=== PATIENT | female | born 1945 | race Caucasian/White ===

== ENCOUNTER 2021-02-06 16:15 | Emergency (ER) | payer MEDICARE, OTHER ==
[~2021-02-06 16:15] MED LIST: ALL DAY ALLERGY10 M2 PO; AMARYL4 MG PO; AUGMENTIN 875-1 EACH PO; ECOTRIN81 MG PO; ENOXAPARIN40 MG/0.4 SC; FEOSOL325 MG PO; GLUCOPHAGE1000 MG PO; HYDROCODON-ACE1 EAC2 PO; KEFLEX CAP 250250 MG PO; LASIX TAB 20 MG20 MG PO; LEVEMIR FL100 UNIT/1 SQ; NEURONTIN800 MG PO; PERCOCET 10-321 EACH PO; PROAIR HFA8.5 GM INH; TRICOR 145 MG145 MG PO; VANCOMYCIN HCL250 MG PO; VITAMIN D2 PO; VITAMIN D2000 UNI1 PO; ZOCOR20 MG PO
[2021-02-06 17:29] LABS: HEMOGLOBIN 11.1 gm/dl (12.3-15.3); RED BLOOD COUNT 3.83 M/UL (4.00-5.10); WHITE BLOOD COUNT 7.4 K/UL (4.5-11.0)
== END 2021-02-06 23:55 | disposition home or self-care (01) ==
LOC: ER1 16:15
PROVIDERS: Physician Assistant Medical
DX: R60.0 Localized edema (principal); E78.5 Hyperlipidemia, unspecified; E11.40 Type 2 diabetes mellitus with diabetic neuropathy, unspecified; F17.200 Nicotine dependence, unspecified, uncomplicated
CPT/HCPCS: 71045; 80053; 82550; 82553; 83874; 83880; 84484; 85025; 93005; 99284

== ENCOUNTER 2021-08-01 15:09 | Emergency (ER) | payer MEDICARE, OTHER, MEDICAID ==
[2021-08-01 16:12] LABS: HEMOGLOBIN 8.9 gm/dl (12.3-15.3); RED BLOOD COUNT 3.11 M/UL (4.00-5.10); WHITE BLOOD COUNT 4.8 K/UL (4.5-11.0)
[2021-08-01] MEDS ORDERED: LASIX20 MG PO (17:01)
[2021-08-01] MEDS ORDERED: CLINDAMYCIN HC150 MG PO (17:01)
== END 2021-08-01 19:38 | disposition home or self-care (01) ==
LOC: ER1 15:09
PROVIDERS: Emergency Medicine
DX: R60.0 Localized edema (principal); E11.9 Type 2 diabetes mellitus without complications; F17.200 Nicotine dependence, unspecified, uncomplicated
CPT/HCPCS: 71045; 80053; 83880; 84484; 85025; 86140; 93005; 99284

== ENCOUNTER 2021-08-31 21:50 | Inpatient (IN) | payer MEDICARE, OTHER ==
[~2021-08-31] VITALS: Ht 172.7 cm; Wt 61.2 kg
[~2021-08-31 21:50] MED LIST changes: +CLINDAMYCIN HC150 MG PO; +FENOFIBRATE145 MG PO; +LASIX20 MG PO; -TRICOR 145 MG145 MG PO
[2021-08-31 22:33] LABS: HEMOGLOBIN 9.7 gm/dl (12.3-15.3); RED BLOOD COUNT 3.41 M/UL (4.00-5.10); WHITE BLOOD COUNT 14.1 K/UL (4.5-11.0)
[2021-09-01 06:26] LABS: HEMOGLOBIN 8.6 gm/dl (12.3-15.3); RED BLOOD COUNT 3.07 M/UL (4.00-5.10)
[2021-09-01] MEDS ORDERED: LORATADINE10 MG PO (12:50)
[2021-09-01] MEDS ORDERED: JARDIANCE25 MG PO (12:52)
[2021-09-02 05:39] LABS: HEMOGLOBIN 8.5 gm/dl (12.3-15.3); RED BLOOD COUNT 2.98 M/UL (4.00-5.10); WHITE BLOOD COUNT 9.6 K/UL (4.5-11.0)
[2021-09-02 21:26] LABS: HEMOGLOBIN 8.3 gm/dl (12.3-15.3); RED BLOOD COUNT 2.91 M/UL (4.00-5.10); WHITE BLOOD COUNT 10.5 K/UL (4.5-11.0)
[2021-09-03 04:45] LABS: HEMOGLOBIN 8.5 gm/dl (12.3-15.3); RED BLOOD COUNT 2.98 M/UL (4.00-5.10); WHITE BLOOD COUNT 10.9 K/UL (4.5-11.0)
[2021-09-04 06:22] LABS: HEMOGLOBIN 7.9 gm/dl (12.3-15.3); RED BLOOD COUNT 2.84 M/UL (4.00-5.10); WHITE BLOOD COUNT 9.5 K/UL (4.5-11.0)
[2021-09-05 02:04] LABS: RED BLOOD COUNT 2.83 M/UL (4.00-5.10)
[2021-09-06 02:22] LABS: HEMOGLOBIN 7.2 gm/dl (12.3-15.3); WHITE BLOOD COUNT 7.5 K/UL (4.5-11.0)
[2021-09-06 02:24] LABS: RED BLOOD COUNT 2.53 M/UL (4.00-5.10)
[2021-09-07 01:49] LABS: RED BLOOD COUNT 2.33 M/UL (4.00-5.10)
[2021-09-07 01:58] LABS: WHITE BLOOD COUNT 5.6 K/UL (4.5-11.0)
[2021-09-07 01:59] LABS: HEMOGLOBIN 6.6 gm/dl (12.3-15.3)
[2021-09-07 02:55] LABS: HEMOGLOBIN 6.9 gm/dl (12.3-15.3)
[2021-09-07 19:24] LABS: HEMOGLOBIN 8.2 gm/dl (12.3-15.3)
[2021-09-07 22:47] LABS: BUN/CREATININE RATIO 25 (0-10)
[2021-09-08 03:04] LABS: HEMOGLOBIN 7.8 gm/dl (12.3-15.3); WHITE BLOOD COUNT 4.9 K/UL (4.5-11.0)
[2021-09-08 03:05] LABS: RED BLOOD COUNT 2.87 M/UL (4.00-5.10)
[2021-09-08 03:42] LABS: BUN/CREATININE RATIO 22 (0-10)
[2021-09-09 03:08] LABS: HEMOGLOBIN 8.1 gm/dl (12.3-15.3); RED BLOOD COUNT 2.97 M/UL (4.00-5.10); WHITE BLOOD COUNT 5.3 K/UL (4.5-11.0)
[2021-09-09 04:15] LABS: BUN/CREATININE RATIO 22 (0-10)
[2021-09-10 16:45] LABS: HEMOGLOBIN 8.5 gm/dl (12.3-15.3)
[2021-09-12 02:57] LABS: HEMOGLOBIN 8.9 gm/dl (12.3-15.3); RED BLOOD COUNT 3.25 M/UL (4.00-5.10); WHITE BLOOD COUNT 6.9 K/UL (4.5-11.0)
[2021-09-14 06:27] LABS: HEMOGLOBIN 8.7 gm/dl (12.3-15.3); RED BLOOD COUNT 3.12 M/UL (4.00-5.10); WHITE BLOOD COUNT 7.6 K/UL (4.5-11.0)
[2021-09-14 06:47] LABS: BUN/CREATININE RATIO 19 (0-10)
[2021-09-15] MEDS ORDERED: GABAPENTIN300 MG PO (08:32)
[2021-09-15] MEDS ORDERED: ASPIRIN EC81 MG PO (08:37)
[2021-09-15] MEDS ORDERED: PROVENTIL HFA6.7 GM INH (08:37)
[2021-09-15] MEDS ORDERED: LOPRESSOR 25 MG25 MG PO (08:37)
[2021-09-15] MEDS ORDERED: MEGACE 400400 MG/10 PO (08:37)
[2021-09-15] MEDS ORDERED: LASIX TAB 20 MG20 MG PO (08:37)
== END 2021-09-15 16:39 | disposition home or self-care (01) | DRG 871 ==
LOC: ER1 21:50 → PROG CARE 09-01 02:17 → MED SURG 4 09-01 02:17 → CDU 09-01 02:17 → MED SURG 4 09-01 10:26 → PROG CARE 09-03 19:11 → MED SURG 4 09-08 23:05
PROVIDERS: Internal Medicine; Internal Medicine Infectious Disease; Student in an Organized Health Care Education/Training Program; ADMIT Internal Medicine
PROC: 3E033XZ Introduction of Vasopressor into Peripheral Vein, Percutaneous Approach (ICD-10-PCS; principal; 2021-09-03)
PROC: 30233N1 Transfusion of Nonautologous Red Blood Cells into Peripheral Vein, Percutaneous Approach (ICD-10-PCS; 2021-09-07)
DX: A41.9 Sepsis, unspecified organism (principal); I21.A1 Myocardial infarction type 2; J18.9 Pneumonia, unspecified organism; M72.6 Necrotizing fasciitis; J96.01 Acute respiratory failure with hypoxia; L03.115 Cellulitis of right lower limb; N17.9 Acute kidney failure, unspecified; E87.3 Alkalosis; N39.0 Urinary tract infection, site not specified; J44.0 Chronic obstructive pulmonary disease with (acute) lower respiratory infection; L03.116 Cellulitis of left lower limb; R65.20 Severe sepsis without septic shock; I10 Essential (primary) hypertension; E78.5 Hyperlipidemia, unspecified; I87.2 Venous insufficiency (chronic) (peripheral); S80.812A Abrasion, left lower leg, initial encounter; S80.811A Abrasion, right lower leg, initial encounter; I48.0 Paroxysmal atrial fibrillation; F17.210 Nicotine dependence, cigarettes, uncomplicated; B18.2 Chronic viral hepatitis C; I95.9 Hypotension, unspecified; E11.51 Type 2 diabetes mellitus with diabetic peripheral angiopathy without gangrene; L89.152 Pressure ulcer of sacral region, stage 2; E83.42 Hypomagnesemia; I73.9 Peripheral vascular disease, unspecified; E11.65 Type 2 diabetes mellitus with hyperglycemia; R53.81 Other malaise; D63.8 Anemia in other chronic diseases classified elsewhere; M79.5 Residual foreign body in soft tissue; R00.1 Bradycardia, unspecified; Z90.710 Acquired absence of both cervix and uterus; Z86.718 Personal history of other venous thrombosis and embolism; Z90.49 Acquired absence of other specified parts of digestive tract; Z83.3 Family history of diabetes mellitus; Z98.890 Other specified postprocedural states; Z98.51 Tubal ligation status; Z80.3 Family history of malignant neoplasm of breast; Z79.4 Long term (current) use of insulin; Z79.82 Long term (current) use of aspirin; Z79.01 Long term (current) use of anticoagulants
CPT/HCPCS: ECHO; 36415; 36430; 36600; 71045; 73600; 73630; 80048; 80053; 80202; 82270; 82550; 82553; 82607; 82728; 82746; 82803; 82962; 83540; 83550; 83605; 83735; 83880; 84439; 84443; 84484; 85014; 85018; 85025; 85027; 85652; 86140; 86850; 86900; 86901; 86920; 87040; 93005; 93306; 93970; 94640; 94645; 94664; 94760; 94762; 96374; 96375; 96376; 97110-GP-CQ; 97116; 97116-GP-CQ; 97162; 97164; 97530; 97530-GP-CQ; 99285; C9113; J1160; J1335; J1650; J1756; J1940; J2370; J2405; J3370; J7030; J7050; J7070; P9016